=== PATIENT | male | born 1930 | race Caucasian/White ===

== ENCOUNTER → 2017-03-04 | Outpatient (CLI) | payer MEDICARE ==
[~2017-03-04] MED LIST: ALBU90OI6 INH; BETA1 PO; CHLO25B PO; ESOM20 PO; FLUSAL2505 IH; MELO7.5 PO; MULVITMINF PO; QUIN10 PO; TAMS.4ER PO
== END ==
LOC: LAB SHORT 14:08 → PLD 14:08
DX: C44.310 Basal cell carcinoma of skin of unspecified parts of face (principal)
CPT/HCPCS: 88305

== ENCOUNTER 2018-06-15 20:40 | Emergency (ER) | payer MEDICARE ==
[~2018-06-15] VITALS: Ht 167.6 cm; Wt 69.0 kg
[2018-06-15] MEDS ORDERED: OMEPRAZOLE20 MG PO (20:55)
[2018-06-15] MEDS ORDERED: QUINAPRIL PO (20:55)
[2018-06-15] MEDS ORDERED: HYDROCHLOROTHIAZIDE PO (20:55)
[2018-06-15] MEDS ORDERED: AMLO5 PO (20:55)
[2018-06-15] MEDS ORDERED: ALBU90OI INH (22:20)
[2018-06-15] MEDS ORDERED: Dulcolax5 MG PO (22:23)
== END 2018-06-15 22:42 | disposition home or self-care (01) ==
LOC: ER 20:40
DX: T59.811A Toxic effect of smoke, accidental (unintentional), initial encounter (principal); J68.8 Other respiratory conditions due to chemicals, gases, fumes and vapors; J98.01 Acute bronchospasm; I10 Essential (primary) hypertension; K59.00 Constipation, unspecified; Z87.891 Personal history of nicotine dependence; Z79.899 Other long term (current) drug therapy
CPT/HCPCS: 71046; 99283-25

== ENCOUNTER 2019-01-05 06:59 | Day surgery (SDC) | payer MEDICARE ==
[~2019-01-05] VITALS: Ht 167.6 cm; Wt 67.3 kg
[~2019-01-05 06:59] MED LIST changes: +ALBU90OI INH; +ALLEGRA ALLERGY60 MG PO; +AMLO10 PO; +AMLO5 PO; +Aspir 8181 MG PO; +BUDE6HFA INH; +Dulcolax5 MG PO; +Flonase 0.05% N16 GM; +HYDR1TAB94 PO; +HYDROCHLOROTHIAZIDE PO; +OCUVITE EYE +1 EACH PO; +OMEP20ER PO; +OMEPRAZOLE20 MG PO; +QUINAPRIL PO
--- NOTE | 2019-01-05 10:54 | NUR ---
01/05/19 1054 Pilar Membreno PT RESTING IN RECLINER COMFORTABLE, TOLERATING PO INTAKE. PT DENIES NAUSEA. PT STATES MINIMAL PAIN AT 1/10 AND DENIES PAIN MEDICATION AT THIS TIME.
== END 2019-01-05 11:40 | disposition home or self-care (01) ==
LOC: ORSCSDS 06:59
PROVIDERS: Otolaryngology
PROC: 8E09XBZ Computer Assisted Procedure of Head and Neck Region (ICD-10-PCS; principal; 2019-01-05 08:30)
PROC: 09BU4ZZ Excision of Right Ethmoid Sinus, Percutaneous Endoscopic Approach (ICD-10-PCS; principal; 2019-01-05 08:30)
PROC: 09JY8ZZ Inspection of Sinus, Via Natural or Artificial Opening Endoscopic (ICD-10-PCS; principal; 2019-01-05 08:30)
PROC: 09DQ4ZZ Extraction of Right Maxillary Sinus, Percutaneous Endoscopic Approach (ICD-10-PCS; principal; 2019-01-05 08:30)
DX: J32.2 Chronic ethmoidal sinusitis (principal); J32.0 Chronic maxillary sinusitis; I10 Essential (primary) hypertension; J44.9 Chronic obstructive pulmonary disease, unspecified; K21.9 Gastro-esophageal reflux disease without esophagitis; Z87.891 Personal history of nicotine dependence; Z79.899 Other long term (current) drug therapy
CPT/HCPCS: 88305; 88311; A9270-GY; C2625; J1100; J2001; J2370; J2405; J2704; J2710; J3010; J7120

== ENCOUNTER → 2019-03-25 | Outpatient (CLI) | payer MEDICARE | END | disposition home or self-care (01) | LOC: PLD 14:24 → LAB SHORT 14:24 | DX: C44.329 Squamous cell carcinoma of skin of other parts of face (principal) | CPT/HCPCS: 88305 ==

== ENCOUNTER → 2019-04-07 | Outpatient (CLI) | payer MEDICARE | END | disposition home or self-care (01) | LOC: PLD 14:38 → LAB SHORT 14:38 | DX: C44.329 Squamous cell carcinoma of skin of other parts of face (principal) | CPT/HCPCS: 88305 ==

== ENCOUNTER 2019-07-02 09:04 | Day surgery (SDC) | payer MEDICARE ==
[~2019-07-02] VITALS: Ht 160 cm; Wt 65.2 kg
[~2019-07-02 09:04] MED LIST changes: +OCCUVITE PO
--- NOTE | 2019-07-02 10:47 | NUR ---
Patient up to Ambulate independently. Gait steady. Surgical site prepped with 2% Chlorhexidine cloth wipe. History, Chart, Medications and Allergies reviewed before start of procedure. Lungs clear T/O to Auscultation. Patient confirms NPO status and agrees with scheduled surgery. Pre-Op teaching done. Pt verbalizes understanding. Patient States Post-Procedure ride home has been arranged. Patient reports completing Chlorhexadine shower X2 prior to admission to hospital.
--- NOTE | 2019-07-02 13:08 | NUR ---
07/02/19 1308 Rolando Vaughan ALL CHARTING UNTIL 1300 PERFORMED BY ORD.MDP
--- NOTE | 2019-07-02 13:48 | NUR ---
ASSUMED CARE OF PT, REPORT FROM MARTIN RACHEL. VSS. ROOM AIR. PT EATING PUDDING. SITTING UP AND TALKING. DENIES ANY FURTHER NEEDS AT THIS TIME.
--- NOTE | 2019-07-02 14:05 | NUR ---
PT ARRIVED TO VIA [facility]. ALERT AND ORIENTED. DRESSING DRY AND INTACT. AMBULATED TO BATHROOM. REPORTS NO PAIN OR NAUSEA. DISCHARGE INSTRUCTIONS GIVEN.
--- NOTE | 2019-07-02 14:13 | NUR ---
NOTE ENTERED AT 1348 WAS ENTERED IN ERROR BY ORD.CASIMIRO.
--- NOTE | 2019-07-02 14:40 | NUR ---
Patient up to Ambulate independently. Gait steady. Dressing to procedure site clean, dry, intact with no visible drainage, swelling, erythema or bruising noted. Discharge instructions reviewed with patient. Patient verbalizes understanding. Copy given to patient to take home. Discharged via wheelchair to private car for ride home.
== END 2019-07-02 14:30 | disposition home or self-care (01) ==
LOC: ORSCMMR 09:04 → EDBD 10:30 → ORD 10:30 → ORSCMMR 14:30
PROVIDERS: Surgery
PROC: 0YU60JZ Supplement Left Inguinal Region with Synthetic Substitute, Open Approach (ICD-10-PCS; principal; 2019-07-02 10:30)
DX: K40.31 Unilateral inguinal hernia, with obstruction, without gangrene, recurrent (principal); I10 Essential (primary) hypertension; Z79.82 Long term (current) use of aspirin
CPT/HCPCS: A9270-GY; C1781; J0690; J2370; J2704; J3010; J7120

== ENCOUNTER → 2019-08-18 | Outpatient (CLI) | payer MEDICARE | END | disposition home or self-care (01) | LOC: PLD 14:20 → LAB SHORT 14:20 | DX: L82.1 Other seborrheic keratosis (principal) | CPT/HCPCS: 88305 ==